=== PATIENT | male | born 1990 | race Hispanic/Latino ===

== ENCOUNTER 2018-02-07 14:41 | Emergency (ER) | payer OTHER ==
[2018-02-07] MEDS: NORCO, ANEXSIA 5/325MG TABLET (HYDROcodone/ACETAMINOPHEN) PO (16:12)
== END 2018-02-07 17:05 | disposition home or self-care (01) ==
LOC: M ED 14:41
DX: S05.12XA Contusion of eyeball and orbital tissues, left eye, initial encounter (principal); S76.111A Strain of right quadriceps muscle, fascia and tendon, initial encounter; Y04.0XXA Assault by unarmed brawl or fight, initial encounter; Y92.149 Unspecified place in prison as the place of occurrence of the external cause; J34.89 Other specified disorders of nose and nasal sinuses
CPT/HCPCS: 73552